=== PATIENT | female | born 1965 | race Two or more races ===

== ENCOUNTER → 2019-08-10 | Outpatient (CLI) | payer OTHER ==
[~2019-08-10] MED LIST: IOHEXOL 240 MG/ML 50ML VIAL. PO ONE; IOHEXOL 300 MG/ML 100ML VIAL. IV ONE
--- NOTE | 2019-08-10 16:02 | RAD ---
EXAM: CT Abdomen with IV contrast CLINICAL HISTORY: Left upper quadrant abdominal pain. COMPARISON: none TECHNIQUE: Helical CT of the abdomen was performed following the administration of intravenous contrast. Axial, coronal and sagittal reformatted images were generated. PQRS compliance statement - One or more of the following individualized dose reduction techniques were utilized for this study: 1. Automated exposure control 2. Adjustment of the mA and/or kV according to patient size 3. Use of iterative reconstruction technique FINDINGS: Lower chest: Lung bases are clear. Abdomen: Left hepatic lobe hypodense lesion measures 4 mm, too small to accurately characterize.. Focal low-attenuation along the falx from ligament likely focal fatty infiltration. High density material dependently within the gallbladder likely sludge. No biliary ductal dilatation. Pancreas is unremarkable. Spleen is normal in appearance. Adrenal glands are unremarkable. Symmetric nephrograms. 1 cm left lower pole hypodense renal lesion is too small to accurately characterize although measures approximately 20 Hounsfield units on the coronal image, likely cystic. Moderate colonic stool content is seen. Colonic diverticulosis. No evidence of bowel obstruction. Fat-containing periumbilical hernia. IUD is partially seen within the uterus. No abdominal lymphadenopathy. No abdominal ascites. Aorta is normal in caliber. Bones: Osseous structures are unremarkable. IMPRESSION: 1. Colonic diverticulosis without evidence for acute diverticulitis. 2. High density material dependently within the gallbladder likely sludge. 3. No abdominal lymphadenopathy. 4. Focal low-attenuation along the falciform ligament likely focal fatty infiltration. Electronically signed by: Juan Quinn MD (08/10/2019 3:59 PM) [facility]
== END | disposition home or self-care (01) ==
LOC: CT 12:01
PROVIDERS: ATTEND Physician Assistant Medical
DX: K42.9 Umbilical hernia without obstruction or gangrene (principal); K57.30 Diverticulosis of large intestine without perforation or abscess without bleeding; K76.9 Liver disease, unspecified; N28.9 Disorder of kidney and ureter, unspecified; Z97.5 Presence of (intrauterine) contraceptive device
CPT/HCPCS: 74160; Q9966; Q9967